=== PATIENT | male | born 1970 | race Caucasian/White ===

== ENCOUNTER → 2023-07-02 | Outpatient (CLI) | payer BC ==
[~2023-07-02] MED LIST: CPR500T PO; HYDR1CAP2 PO; HYDR1TAB PO; PRD50T PO; PRM25T PO
--- NOTE | 2023-07-02 08:45 | Diagnostic Imaging Report ---
EXAMINATION: CT thoracic and lumbar spine without contrast. TECHNIQUE: Multiple contiguous axial images were obtained through the thoracic and lumbar spine without the use of intravenous contrast. Sagittal and coronal reformations were then performed. All CT scans use one or more of the following dose optimizing techniques: automated exposure control, MA and/or KvP adjustment based on patient size and exam type or iterative reconstruction. HISTORY: Back pain COMPARISON: None available. FINDINGS: The alignment of the thoracic and lumbar spine is normal. Vertebral body heights are normal and no fracture is seen. There is mild lumbar facet hypertrophy. There is mild disc height loss greatest at L5-S1. There is mild multilevel thoracolumbar spondylosis. Limited views of the soft tissues show no abnormality. The aorta is normal. IMPRESSION: 1. Mild degenerative changes of the thoracolumbar spine without acute osseous abnormality. Dictated by: Dictated on workstation # [id number]
== END ==
LOC: RAD 07:31
PROVIDERS: ATTEND Family Medicine
DX: M47.815 Spondylosis without myelopathy or radiculopathy, thoracolumbar region (principal)
CPT/HCPCS: 72128; 72131

== ENCOUNTER 2023-07-17 06:14 | Outpatient (CLI) | payer BC ==
[~2023-07-17] VITALS: Ht 172.7 cm; Wt 96.7 kg
[2023-07-19] MEDS ORDERED: LORA-1358 PO (11:07)
[2023-07-19] MEDS ORDERED: LOSA50TA63 PO (11:07)
== END 2023-07-19 11:11 | disposition home or self-care (01) ==
LOC: PREOP 06:14
PROVIDERS: ATTEND Surgery
DX: Z01.818 Encounter for other preprocedural examination (principal)

== ENCOUNTER 2023-07-30 08:28 | Day surgery (SDC) | payer BC ==
[~2023-07-30] VITALS: Ht 172.7 cm; Wt 96.7 kg
[~2023-07-30 08:28] MED LIST changes: +LORA-1358 PO; +LOSA50TA63 PO
[2023-07-30] MEDS ORDERED: LACTATED RINGERS 1,000 ML 1,000 ML IV STA (08:29)
--- NOTE | 2023-07-30 08:34 | Progress Note-Pre Operative ---
Pre-Operative Progress Note Date H&P Reviewed: Jul 30, 2023 Time H&P Reviewed: 08:30 History & Physical: H&P Reviewed, Patient Examed, No changes noted Pre-Operative Diagnosis: screening colonoscopy STEPHANI LINDSAY DO Jul 30, 2023 08:33
[2023-07-30 08:50] VITALS: BP 134/89
--- NOTE | 2023-07-30 09:12 | Progress Note-Post Operative ---
Post-Operative Progess Note Surgeon (s)/Feed Crusher Operator (s) Surgeon STEPHANI LINDSAY DO Feed Crusher Operator: n/a Pre-Operative Diagnosis screening colonoscopy Post-Operative Diagnosis Diverticulosis, Internal hemorrhoids, Procedure & Operative Findings Date of Procedure 07/30/23 Procedure Performed/Findings Colonoscopy Anesthesia Type per TRANSPORT AIRCREWMAN Estimated Blood Loss Estimated blood loss (mL): none Specimens/Packing Specimens Removed none STEPHANI LINDSAY DO Jul 30, 2023 09:12
[2023-07-30 09:15] VITALS: BP 91/63
--- NOTE | 2023-07-30 09:15 | Discharge Inst-Simple/Standard ---
Discharge Inst-Standard Patient Instructions/Follow Up Plan of Care/Instructions/FU: Follow up colonoscopy in 5 years, be seen earlier if having issues Activity as Tolerated: Yes Discharge Diet: Regular Diet (High fiber) STEPHANI LINDSAY DO Jul 30, 2023 09:15
[2023-07-30 09:20] VITALS: BP 92/70
[2023-07-30 09:52] VITALS: BP 92/70
--- NOTE | 2023-07-30 13:25 | Anesthesia-General Post-Op ---
MAC Patient Condition Mental Status/LOC: Same as Preop Cardiovascular: Satisfactory Nausea/Vomiting: Absent Respiratory: Satisfactory Pain: Controlled Complications: Absent Post Op Complications Complications None Follow Up Care/Instructions Patient Instructions None needed. Anesthesiology Discharge Order Discharge Order Patient is doing well, no complaints, stable vital signs, no apparent adverse anesthesia problems. No complications reported per nursing. CASEY HACKETT CRNA Jul 30, 2023 13:25
--- NOTE | 2023-07-30 15:03 | OPERATIVE REPORT ---
DATE OF SERVICE: 07/30/2023 PREOPERATIVE DIAGNOSIS: Family history of colon cancer. POSTOPERATIVE DIAGNOSIS: Diverticulosis, internal hemorrhoids. PROCEDURE: Colonoscopy. SURGEON: Stephani Herrera DO ANESTHESIA: Per [employer]QU[employer] RESEARCH ASSOCIATE. ESTIMATED BLOOD LOSS: None. COMPLICATIONS: None. INDICATIONS: The patient is a 52-year-old male, needing colonoscopy. He understands risks and benefits of procedure and wished to proceed. Consent was signed in chart. DESCRIPTION OF PROCEDURE: The patient was taken to endoscopy suite, placed in left lateral recumbent position. Timeout was performed. Digital rectal exam was performed. Some internal hemorrhoids. No palpable polyps, masses or ulcerations. Scope was inserted in the rectum, advanced all the way to the cecum with minimal difficulty. Prep was adequate. Scope was slowly retracted back. No polyps, masses or ulcerations in the cecum, ascending, transverse, descending and sigmoid colon. Sigmoid colon had some diverticulosis present. Scope was then continuously retracted back to the rectum where it was also retroflexed noting no other pathology. Scope was returned to its normal position, slowly withdrawn until completely removed. The patient tolerated the procedure well without complications, taken to recovery room in stable condition. RECOMMENDATIONS: The patient will need repeat colonoscopy in 5 years. Any issues before that, be seen at that time. Due to diverticulosis, we would recommend high-fiber diet. Job ID: [id number] DocumentID: [id number] Dictated Date: 07/30/2023 09:21:35 Prison Classification Counselor Date: 07/30/2023 15:01:00 Dictated By: STEPHANI HERRERA DO
== END 2023-07-30 09:52 | disposition home or self-care (01) ==
LOC: ENDO 08:28
PROVIDERS: ATTEND Surgery
DX: Z12.11 Encounter for screening for malignant neoplasm of colon (principal); K57.30 Diverticulosis of large intestine without perforation or abscess without bleeding; K64.8 Other hemorrhoids; Z80.0 Family history of malignant neoplasm of digestive organs; S99.921S Unspecified injury of right foot, sequela; E66.9 Obesity, unspecified; Z68.32 Body mass index [BMI] 32.0-32.9, adult